=== PATIENT | male | born 1980 | race Caucasian/White ===

== ENCOUNTER 2018-08-12 10:37 | Emergency (ER) | payer OTHER ==
[~2018-08-12] VITALS: Ht 175.2 cm; Wt 80.7 kg
[~2018-08-12 10:37] MED LIST: HYDROCODONE BIT1 T11 PO; ZOFRAN ODT4 MG SL
[2018-08-12] MEDS ORDERED: AUGMENTIN 875-875 MG PO (10:51)
[2018-08-12] MEDS ORDERED: PREDNISONE20 M1 PO (10:51)
== END 2018-08-12 11:00 | disposition home or self-care (01) ==
LOC: ED 10:37
DX: J02.0 Streptococcal pharyngitis (principal)

== ENCOUNTER 2018-11-17 09:12 | Emergency (ER) | payer OTHER ==
[~2018-11-17] VITALS: Ht 175.2 cm; Wt 81.6 kg
[~2018-11-17 09:12] MED LIST changes: +AUGMENTIN 875-875 MG PO; +PREDNISONE20 M1 PO
[2018-11-17 09:44] LABS: BASO # 0.1 10*3/uL (0.0-0.1); BASO % 0.9 % (0.0-1.0); EOS # 0.3 10*3/uL (0.0-0.4); EOS % 3.2 % (1.0-4.0); HEMATOCRIT 48.7 % (42.0-52.0); HEMOGLOBIN 16.5 g/dl (14.0-18.0); LYMPH # 3.7 10*3/uL (1.3-4.4); LYMPH % 36.6 % (27.0-41.0); MEAN CELL VOLUME 93.3 fl (80.0-94.0); MEAN CORPUSCULAR HGB 31.6 pg (27.0-31.0); MEAN CORPUSCULAR HGB CONC 33.9 g/dl (33.0-37.0); MEAN PLATELET VOLUME 9.9 fl (9.6-12.3); MONO # 0.9 10*3/uL (0.1-1.0); MONO % 9.2 % (3.0-9.0); NEUT # 5.1 10*3/uL (2.3-7.9); NEUT % 49.8 % (47.0-73.0); PLATELET COUNT AUTOMATED 349 10*3/uL (130-400); RED BLOOD COUNT 5.22 10*6/uL (4.50-5.90); RED CELL DISTRI WIDTH 13.7 % (0-14.5); WHITE BLOOD COUNT 10.2 10*3/uL (4.8-10.8)
[2018-11-17 10:00] LABS: BILIRUBIN NEGATIVE (NEGATIVE); BLOOD NEGATIVE (NEGATIVE); CLARITY CLEAR (CLEAR); COLOR YELLOW (YELLOW); GLUCOSE NEGATIVE (NEGATIVE); KETONE NEGATIVE (NEGATIVE); LEUKO ESTERASE NEGATIVE (NEGATIVE); NITRITE NEGATIVE (NEGATIVE); UROBILINOGEN 0.2 E.U./dl (0.2-1.0)
[2018-11-17 10:03] LABS: ALBUMIN 4.1 gm/dl (3.1-4.5); ALKALINE PHOSPHATASE 69 U/L (45-117); BUN 13 mg/dl (7-24); CHLORIDE 108 mmol/L (98-107); CREATININE 1.02 mg/dL (0.70-1.30); POTASSIUM 4.1 mmol/L (3.5-5.1); SGOT/AST 17 IU/L (3-35); SGPT/ALT 23 U/L (12-78); SODIUM 140 mmol/L (136-145); TOTAL PROTEIN 7.9 gm/dL (6.4-8.2)
[2018-11-17 10:14] LABS: RBC 0-2 rbc/hpf (0-2); WBC 0-2 wbc/hpf (0-5)
== END 2018-11-17 11:32 | disposition home or self-care (01) ==
LOC: ED 09:12
PROVIDERS: Nurse Practitioner Family
DX: R10.12 Left upper quadrant pain (principal); R10.32 Left lower quadrant pain; R53.83 Other fatigue; F17.200 Nicotine dependence, unspecified, uncomplicated; F12.90 Cannabis use, unspecified, uncomplicated; Z90.49 Acquired absence of other specified parts of digestive tract

== ENCOUNTER 2022-09-29 11:45 | Emergency (ER) | payer OTHER ==
[~2022-09-29] VITALS: Ht 175.2 cm; Wt 78.9 kg
[2022-09-29] MEDS ORDERED: AMOX-CLAV 875-1 EACH PO (12:10)
== END 2022-09-29 12:23 | disposition home or self-care (01) ==
LOC: ED 11:45
DX: S70.361A Insect bite (nonvenomous), right thigh, initial encounter (principal); R42 Dizziness and giddiness; Z98.890 Other specified postprocedural states; Z87.442 Personal history of urinary calculi; W57.XXXA Bitten or stung by nonvenomous insect and other nonvenomous arthropods, initial encounter; Y93.89 Activity, other specified; Y92.89 Other specified places as the place of occurrence of the external cause; Y99.8 Other external cause status

== ENCOUNTER 2023-08-06 23:41 | Emergency (ER) | payer OTHER ==
[~2023-08-06 23:41] MED LIST changes: +AMOX-CLAV 875-1 EACH PO
[2023-08-07] MEDS ORDERED: NAPROSYN500 MG PO (04:44)
== END 2023-08-07 00:13 | disposition left against medical advice (07) ==
LOC: ED 23:41
DX: M25.511 Pain in right shoulder (principal); Z53.29 Procedure and treatment not carried out because of patient's decision for other reasons; Z98.890 Other specified postprocedural states

== ENCOUNTER 2023-08-07 01:56 | Emergency (ER) | payer OTHER ==
[~2023-08-07] VITALS: Ht 175.2 cm; Wt 90.7 kg
[2023-08-07] MEDS ORDERED: NAPROSYN500 MG PO (04:44)
[2023-08-07] MEDS ORDERED: IBUPROFEN 600 MG TAB PO ONE (04:45)
== END 2023-08-07 04:47 | disposition left against medical advice (07) ==
LOC: ED 01:56
DX: S43.421A Sprain of right rotator cuff capsule, initial encounter (principal); Z87.442 Personal history of urinary calculi; Z98.890 Other specified postprocedural states; W19.XXXA Unspecified fall, initial encounter; Y93.89 Activity, other specified; Y92.39 Other specified sports and athletic area as the place of occurrence of the external cause; Y99.8 Other external cause status

== ENCOUNTER 2024-03-21 07:48 | Emergency (ER) | payer OTHER ==
[~2024-03-21] VITALS: Ht 175.2 cm; Wt 82.1 kg
[~2024-03-21 07:48] MED LIST changes: +NAPROSYN500 MG PO
[2024-03-21] MEDS ORDERED: ACETAMINOPHEN 325 MG TAB PO ONE (08:40)
[2024-03-21] MEDS ORDERED: NAPROSYN500 MG PO (09:38)
== END 2024-03-21 09:59 | disposition home or self-care (01) ==
LOC: ED 07:48
DX: M25.512 Pain in left shoulder (principal); M25.522 Pain in left elbow; R51.9 Headache, unspecified; M54.2 Cervicalgia; R22.32 Localized swelling, mass and lump, left upper limb; Z79.899 Other long term (current) drug therapy; Y04.2XXA Assault by strike against or bumped into by another person, initial encounter; Y93.89 Activity, other specified; Y92.89 Other specified places as the place of occurrence of the external cause; Y99.8 Other external cause status